=== PATIENT | male | born 1995 | race Caucasian/White ===

== ENCOUNTER 2025-06-07 23:53 | Emergency (ER) | payer MEDICAID ==
[~2025-06-07] VITALS: Ht 172.7 cm; Wt 83.7 kg
--- NOTE | 2025-06-08 00:18 | Physician Documentation ---
History of Present Illness ~ Chief Complaint: Wound Stated Complaint: MULTIPLE COMPLAINTS Time Seen by MD: 00:12 Mode of Arrival: Ambulatory HPI 29-year-old male, presenting with multiple wounds He tells me that he has had some chronic wounds on his upper back for at least a month or more. They has been draining. He says that it seemed like a big abscess but now it has drained. Then over the past 5 days he has been having increased redness swelling and pain to his right lower leg. He reports having several open wounds over the leg as well. They have been draining a little bit. No definite fevers or chills. He does use multiple substances, but only smokes them, does not use IV drugs or needles. No history of infections or antibiotic use. No allergies to antibiotics. He is currently staying with a friend, but does not have access to a shower Tetanus within 5 years?: No Medication Reconciliation Scheduled Cephalexin*Monohydrate* (Keflex*), 1 CAP PO Q8H Sulfamethoxazole/Trimethoprim (Bactrim Ds Tablet), 1 TAB PO Q12H Review of Systems Constitutional: Denies: fever Musculoskeletal: Reports: pain, swelling Integumentary: Reports: wound(s) Physical Exam Vital Signs: Temperature: 97.0, Source: Temporal, Heart Rate: 89, Respiratory Rate: 16, BP: 117/68, Pulse Oximetry: 99, Weight: 83.700 Oxygen Flow Rate: 0 Physical Exam General: This is a pleasant, disheveled and tired appearing young male HEENT: Atraumatic, oropharynx appears dry Heart: Regular rate and rhythm, no audible cardiac murmur, normal-appearing peripheral perfusion Lungs: normal work of breathing, normal oxygen saturation on room air Back: The patient has several scabbed wounds on his central upper back, that appears to have spontaneously drained, no areas of fluctuance or significant swelling. There was mild surrounding erythema Right leg: The patient has multiple open wounds in his right leg with a scabbing. No active drainage. The right lower leg is erythematous in swollen, larger in diameter than the left. It is blanching in mildly tender to palpation. Neuro: Alert and oriented Psychiatric: Appears tired but is cooperative with exam Progress Results/Orders Results/Orders Orders - CHRIS DE LA TORRE MD Culture Blood (06/08/25 00:32) Cephalexin Capsule (Keflex Capsule) (06/08/25 03:25) Completed Orders - CHRIS DE LA TORRE MD Cbc/Diff (06/08/25 00:32) CMP (06/08/25 00:32) Ceftriaxone/N1j-Rhdiwuxf 1gm (Rocephin 1 (06/08/25 00:45) LA (06/08/25 00:56) Sulfamethox/Trimetho. Ds Tab (Septra Ds (06/08/25 03:25) Medications Received in ER Medications (Trade) Dose Ordered Sig/Nicole Route PRN Reason Start Time Stop Time Status Last Admin Dose Admin Ceftriaxone Sodium 50 ml @ 100 mls/hr ONCE ONCE IV 06/08/25 00:45 06/08/25 01:14 DC 06/08/25 01:05 100 MLS/HR Vital Signs 06/08/25 06/08/25 06/08/25 00:03 00:13 01:00 Temp 97.0 Pulse 89 80 Resp 16 16 14 B/P (MAP) 117/68 105/64 (78) Pulse Ox 99 98 O2 Flow Rate 0 Laboratory Tests Test 06/08/25 00:40 06/08/25 00:45 Lactic Acid Level 0.7 White Blood Count 7.3 Red Blood Count 4.46 L Hemoglobin 12.6 L Hematocrit 37.0 L Mean Corpuscular Volume 83.1 Mean Corpuscular Hemoglobin 28.3 Mean Corpuscular Hemoglobin Concent 34.0 Red Cell Distribution Width 13.9 Platelet Count 297 Mean Platelet Volume 8.0 Neutrophils (%) (Auto) 71.1 Lymphocytes (%) (Auto) 18.8 L Monocytes (%) (Auto) 7.0 Eosinophils (%) (Auto) 2.2 Basophils (%) (Auto) 0.9 Neutrophils # (Auto) 5.2 Lymphocytes # (Auto) 1.4 Monocytes # (Auto) 0.5 Eosinophils # (Auto) 0.2 Basophils # (Auto) 0.1 CBC Comment Sodium Level 139 Potassium Level 3.6 Chloride Level 102 Carbon Dioxide Level 32.1 H Anion Gap 5 L Blood Urea Nitrogen 15 Creatinine 0.87 Estimated GFR/1.73 m2 > 90 BUN/Creatinine Ratio 17.2 Glucose Level 91 Calcium Level 8.6 Total Bilirubin 0.3 Aspartate Amino Transf (AST/SGOT) 23 Alanine Aminotransferase (ALT/SGPT) 15 Alkaline Phosphatase 104 Total Protein 8.6 H Albumin 3.4 Globulin 5.2 H Albumin/Globulin Ratio 0.7 L Chemistry Comments Microbiology Date/Time Source Procedure Growth Status 06/08/25 01:10 Blood Arm Left Blood Culture - Preliminary NEGATIVE (LESS THAN 24 HOURS) Resulted Medical Decision Making Additional information obtaine: N/A Findings na Differential Dx:Considerations: Include: Abscess, Cellulitis, Healing wound Additional Comment The patient presents with multiple wounds including wounds in his right lower leg that have significant surrounding erythema and swelling consistent with cellulitis. No findings to suggest an abscess on his back or legs. He is afebrile. Given his significant cellulitis, an IV was placed and labs were obtained. Labs show no significant leukocytosis and a normal lactate. He was given a dose of IV ceftriaxone and oral Bactrim. I did offer admission for IV antibiotics. However, he declined this, and did not want to stay in the hospital. I did academic counselor him on the risks of worsening infection, and he still wanted to leave. He will be discharged on Bactrim and Keflex. He was told to return to the ER if he is not have improvement of his infection within a couple of days, and to return immediately if he has worsening symptoms. Departure Time of Disposition: 03:25 Disposition: HOME / SELF CARE / HOMELESS Impression: Primary Impression: Wound cellulitis Additional Impression: Cellulitis of right leg Condition: Stable Discharge Instructions: Cellulitis, Adult Referrals: NO PRIMARY CARE PROVIDER (PCP) Prescriptions Cephalexin*Monohydrate* (Keflex*) 500 Mg Capsule 1 CAP PO Q8H for 10 Days, #30 CAP Prov: CHRIS DE LA TORRE MD 06/08/25 Sulfamethoxazole/Trimethoprim (Bactrim Ds Tablet) 800 Mg-160 Mg Tablet 1 TAB PO Q12H for 10 Days, #20 TAB Prov: CHRIS DE LA TORRE MD 06/08/25 Education Educated: Patient Educated regarding: diagnosis, treatment, need for follow up Signature Scribe Signature: na Attestation: CHRIS Al MD Jun 08, 2025 00:18
[2025-06-08 01:02] LABS: MEAN PLATELET VOLUME 8.0 FL (7.4-10.4); RED CELL DISTRIBUTION WIDTH 13.9 % (11.5-14.5)
[2025-06-08] MEDS: CefTRIAXone/D5W-Rocephin 1gm 50 ML IV ONE (01:05)
[2025-06-08 01:20] LABS: CREATININE 0.87 MG/DL (0.60-1.10); TOTAL CARBON DIOXIDE 32.1 MMOL/L (24-32); eCRCL 119 ML/MIN; eGFR > 90 ML/MIN
[2025-06-08] MEDS ORDERED: SULF1TAB49 PO (03:27)
[2025-06-08] MEDS ORDERED: CEPH-585 PO (03:27)
[2025-06-08 04:00] VITALS: BP 111/71; PULSE 72; RESP 17; O2SAT 99
[2025-06-08] MEDS: sulfamethoxazole/trimethoprim DS (800/160mg) tablet PO ONE (04:14)
[2025-06-08 04:27] VITALS: TEMP 98.3
== END 2025-06-08 04:30 | disposition home or self-care (01) ==
LOC: ER 23:55
DX: L03.115 Cellulitis of right lower limb (principal); F17.200 Nicotine dependence, unspecified, uncomplicated
CPT/HCPCS: 36415; 80053; 83605; 85025; 87040; 96365; 99285; J0696